=== PATIENT | male | born 1985 | race Caucasian/White ===

== ENCOUNTER 2023-09-13 12:09 | Emergency (ER) | payer OTHER, SELFPAY ==
[2023-09-13 12:28] VITALS: BP 95/65
--- NOTE | 2023-09-13 12:36 | ED.GENMED ---
History of Present Illness
<Clifton Waltonasim, DO - Last Filed: 09/14/23 06:18>
General
Chief Complaint: Crisis Evaluation
Time Seen by Provider: 09/13/23 12:35
History of Present Illness
History of Present Illness:
HPI: Patient came in by ambulance. He was found wandering on the streets of [place]. He was agitated. He has a history of meth use. Apparently EMS tried to call the father but the father did not get involved did not want to take him to the
hospital. The patient was very agitated prior to arrival was given 5 mg of IM Versed twice. 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
EXAM:
GENERAL: Akathisia noted
HEENT: Moist oral mucosa
CARDIOVASCULAR: No murmurs, normal heart rate, regular rhythm, No chest wall tenderness
PULMONARY: No respiratory distress, breath sounds are clear and equal
ABDOMEN: Soft with no peritoneal signs, no tenderness
NEUROLOGIC: Excellent strength all extremities, no coordination deficits
PSYCHIATRIC: Although he appears to have the effects of meth on board, he can fairly easily be redirected and answers questions appropriately
EXTREMITIES: Nontender, no edema, moves all extremities equally
SKIN: No rash, no lesions
TIME OF INITIAL ENCOUNTER: 12:45 PM
NUMBER AND COMPLEXITY OF PROBLEMS ADDRESSED AT THE ENCOUNTER
� Chronic conditions affecting care: History of IVDA, hep C
� Acute Exacerbation and/or Progression of Chronic Illness: This is an acute but recurring problem
� Differential Diagnosis includes: Meth abuse, substance use disorder, primary psychiatric illness, hypoglycemia
AMOUNT AND/OR COMPLEXITY OF DATA TO BE REVIEWED AND ANALYZED
� I performed an independent evaluation of and my interpretation is:
EKG:
CT:
X-rays:
Laboratory Studies: White count is 19,000 however the patient is afebrile and lactic acid is normal. Transaminases are elevated however the patient does have a history of hep C. Initial blood sugar in the 61. Sodium today is
139.
Other:
� Review of other/old records: I reviewed records, the patient was admitted with hyponatremia thought related to meth use in 2021
� Clinical information was obtained by an independent historian: EMS
� Prescriptions/Medications Considered but not given:
� Further testing considered but not performed:
RISK OF COMPLICATIONS AND/OR MORBIDITY OR MORTALITY OF PATIENT MANAGEMENT
� Social determinants of health affecting care: I believe patient is homeless
� Discussion with other providers: I spoke to crisis and [facility]
� Escalation of care including admission/observation vs risk of discharge considered: Patient came in as he was wandering and [place]. Suspect component of substance use disorder. He admits to meth use. Given his concern
for psychosis, crisis also evaluated the patient but recommends [facility] to assist with placement. [facility] is attempting to place patient at [facility]. Blood sugar has improved. Although leukocytosis is noted, his lactic acid is normal, this
is likely more of a stress response as opposed to true infection. He is afebrile. I feel that he is medically clear for placement.
Past History
<Clifton Noonan, DO - Last Filed: 09/14/23 06:18>
Past History
ED Past Medical History: Other (Hepatitis C)
ED Past Surgical History: None
Social History
Tobacco: Smoker
Alcohol: None
Drug: IVDA and Other (Methamphetamine)
Personal: Single
Living: homeless
Employment: Not employed
Phy Exam
<Clifton Noonan, DO - Last Filed: 09/14/23 06:18>
Physical Exam
Physical Exam:
See HPI
Course
<Clifton Noonan, DO - Last Filed: 09/14/23 06:18>
Orders/Labs/Results
Orders:
Orders
09/13/23 12:40
Crisis Consult Urgent
Reason for Consult: psychosis
09/13/23 12:58
Complete Blood Count/With Diff Urgent
Comprehensive Metabolic Panel Urgent
09/13/23 14:02
0.9% Sodium Chloride 1000 ml [Nss] 1,000 ml IV BOLUS
09/13/23 14:36
Lactic Acid Q4H
Comment: CANCEL 2nd LACTIC ACID IF 1st LACTIC ACID IS LESS THAN 2
Blood Culture Q30M
LARA Source: Blood/Venous
Specimen Description:
Blood Culture Q30M
LARA Source: Blood/Venous
Specimen Description:
09/13/23 16:12
Drug Screen, Urine [Urine Drug Abuse Screen] Urgent
Date Specimen was Collected: 09/13/23
Time Specimen was Collected: 16:08
Fentanyl, Urine Urgent
Abnormal Lab Results
09/13/23 09/13/23 09/13/23
12:58 15:08 16:12
WBC 19.0 H 10^3/uL
(4.8-10.8)
RBC 4.15 L 10^6/uL
(4.70-6.10)
Hgb 12.5 L g/dL
(13.0-18.0)
Hct 35.0 L %
(39.0-52.0)
Abs Immat Gran (auto) 0.1 H 10^3/uL
(0-0.05)
Absolute Neuts (auto) 16.9 H 10^3/uL
(1.4-6.5)
Absolute Monos (auto) 0.8 H 10^3/uL
(0.1-0.6)
Neutrophils % 88.9 H %
(42.2-75.2)
Lymphocytes % 6.0 L %
(20.5-51.1)
Carbon Dioxide 21 L mmol/L
(22-30)
Glucose 61 L mg/dl
(70-99)
AST 424 H U/L
(17-59)
ALT 133 H U/L
(0-50)
Total Protein 8.3 H g/dl
(6.3-8.2)
Ur Amphetamines Screen Positive H
(Negative)
U Methamphetamines Scrn Positive H
(Negative)
POC Glucose 105 H mg/dl
(70-99)
09/13/23 12:58
09/13/23 12:58
Vital Signs
Initial and Last Documented VS:
Initial Vital Signs
Temp Pulse Resp BP Pulse Ox
97.5 F 90 20 95/65 100
09/13/23 12:28 09/13/23 12:28 09/13/23 12:28 09/13/23 12:28 09/13/23 12:28
Last Documented Vital Signs
Temp Pulse Resp BP Pulse Ox
98.5 F 117 26 121/84 99
09/13/23 14:24 09/13/23 16:22 09/13/23 14:04 09/13/23 16:22 09/13/23 16:22
Moiséslt;Tom Bird, DO - Last Filed: 09/13/23 17:13>
Orders/Labs/Results
Orders:
Orders
09/13/23 12:40
Crisis Consult Urgent
Reason for Consult: psychosis
09/13/23 12:58
Complete Blood Count/With Diff Urgent
Comprehensive Metabolic Panel Urgent
09/13/23 14:02
0.9% Sodium Chloride 1000 ml [Nss] 1,000 ml IV BOLUS
09/13/23 14:36
Lactic Acid Q4H
Comment: CANCEL 2nd LACTIC ACID IF 1st LACTIC ACID IS LESS THAN 2
Blood Culture Q30M
LARA Source: Blood/Venous
Specimen Description:
Blood Culture Q30M
LARA Source: Blood/Venous
Specimen Description:
09/13/23 16:12
Drug Screen, Urine [Urine Drug Abuse Screen] Urgent
Date Specimen was Collected: 09/13/23
Time Specimen was Collected: 16:08
Fentanyl, Urine Urgent
Abnormal Lab Results
09/13/23 09/13/23 09/13/23
12:58 15:08 16:12
WBC 19.0 H 10^3/uL
(4.8-10.8)
RBC 4.15 L 10^6/uL
(4.70-6.10)
Hgb 12.5 L g/dL
(13.0-18.0)
Hct 35.0 L %
(39.0-52.0)
Abs Immat Gran (auto) 0.1 H 10^3/uL
(0-0.05)
Absolute Neuts (auto) 16.9 H 10^3/uL
(1.4-6.5)
Absolute Monos (auto) 0.8 H 10^3/uL
(0.1-0.6)
Neutrophils % 88.9 H %
(42.2-75.2)
Lymphocytes % 6.0 L %
(20.5-51.1)
Carbon Dioxide 21 L mmol/L
(22-30)
Glucose 61 L mg/dl
(70-99)
AST 424 H U/L
(17-59)
ALT 133 H U/L
(0-50)
Total Protein 8.3 H g/dl
(6.3-8.2)
Ur Amphetamines Screen Positive H
(Negative)
U Methamphetamines Scrn Positive H
(Negative)
POC Glucose 105 H mg/dl
(70-99)
09/13/23 12:58
09/13/23 12:58
Vital Signs
Initial and Last Documented VS:
Initial Vital Signs
Temp Pulse Resp BP Pulse Ox
97.5 F 90 20 95/65 100
09/13/23 12:28 09/13/23 12:28 09/13/23 12:28 09/13/23 12:28 09/13/23 12:28
Last Documented Vital Signs
Temp Pulse Resp BP Pulse Ox
98.5 F 117 26 121/84 99
09/13/23 14:24 09/13/23 16:22 09/13/23 14:04 09/13/23 16:22 09/13/23 16:22
<Clifton Noonan, DO - Last Filed: 09/14/23 06:18>
*Critical Care Note
Total Time (30-74mins, 75-104mins- exclusive of procedures): Not Applicable
<Tom Bird DO - Last Filed: 09/13/23 17:13>
Update Note
Update Note:
Patient accepted at [facility]. Stable for discharge to outpatient rehabilitation
ED Attending Note
<Clifton Noonan DO - Last Filed: 09/14/23 06:18>
-
Portions of this chart may have been created with voice recognition software.� Occasional wrong word or��sound alike� substitutions may have occurred due to the inherent limitations of voice recognition software.
Discharge Plan
Departure
Patient Disposition: Acute Rehab Facility
Date of Disposition: 09/13/23
Time of Disposition: 15:42
Discharge Problem:
Methamphetamine-induced psychotic disorder
Instructions: Drug and Alcohol Abuse Information
Prescriptions:
No Action
Unobtainable
0
Referrals:
Juan Galindo MD [Family Provider] -
Activity Restrictions/Additional Instructions:
Please go directly to [facility]. Return immediately for any worsening symptoms or any other concerns
Interventions
Interventions:
*Risk Screen - Suicide Last Done: 09/13/23 12:44
*General Assessment Last Done: 09/13/23 12:44
*Neglect/Abuse Screening Last Done: 09/13/23 12:44
ED- Fall Risk Assessment Last Done: 09/13/23 17:30
*ED COVID-19 Vaccine History Last Done: 09/13/23 17:30
*Nursing Disposition Last Done: 09/13/23 17:30
ED-Psychological Assessment Last Done: 09/13/23 12:30
Discharge Date and Time
Discharge Date/Time: 09/13/23 17:32
Print Language: FRISIAN
[2023-09-13 13:12] LABS: % Basophils 0.2 % (0-2); % Immature Granulocytes 0.5 % (0-0.5); % Monocytes 4.4 % (1.7-9.3); % Neutrophils 88.9 % (42.2-75.2); Absolute Immature Granulocytes 0.1 10^3/uL (0-0.05); Absolute Lymphocytes 1.2 10^3/uL (1.2-3.4); Absolute Monocytes 0.8 10^3/uL (0.1-0.6); Absolute Neutrophils 16.9 10^3/uL (1.4-6.5); Hemoglobin 12.5 g/dL (13.0-18.0); Mean Corp Hgb Conc. 35.7 g/dL (33.0-37.0); Mean Corpuscular Hgb 30.1 pg (27.0-31.0); Mean Corpuscular Volume 84.3 fL (80.0-94.0); Mean Platelet Volume 10.3 fL (7.4-10.4); Nucleated Red Blood Cells % 0 % (-); Platelet Count 348 10^3/uL (130-400); Red Blood Cell Count 4.15 10^6/uL (4.70-6.10); Red Cell Dist. Width 12.9 % (11.5-14.5)
[2023-09-13 13:27] LABS: ALT (SGPT) 133 U/L (0-50); AST (SGOT) 424 U/L (17-59); Albumin 4.8 g/dl (3.5-5.0); Alkaline Phosphatase 88 U/L (38-126); Blood Urea Nitrogen 11 mg/dl (9-20); Carbon Dioxide 21 mmol/L (22-30); Chloride 101 mmol/L (98-107); Glucose 61 mg/dl (70-99); Potassium 3.8 mmol/L (3.5-5.1); Sodium 139 mmol/L (135-145); Total Protein 8.3 g/dl (6.3-8.2); eGFR > 60.00
[2023-09-13 14:04] VITALS: BP 133/86
[2023-09-13] MEDS: NSS 1000 IV (14:20)
[2023-09-13 14:33] VITALS: BMI 29.3
[2023-09-13 14:59] LABS: Lactic Acid 1.3 mmol/L (0.7-2.0)
[2023-09-13 15:09] LABS: Glucose - Point of Care 105 mg/dl (70-99)
[2023-09-13 16:22] VITALS: BP 121/84
[2023-09-13 16:54] LABS: Amphetamines Positive (Negative); Barbiturates Negative (Negative); Benzodiazepines Negative (Negative); Buprenorphine Negative (Negative); Cocaine Negative (Negative); Marijuana Negative (Negative); Methadone Negative (Negative); Methamphetamines Positive (Negative); Opiates Negative (Negative); Phencyclidine Negative (Negative); Tricyclic Antidepressants Negative (Negative)
[2023-09-13 17:05] LABS: Fentanyl, Urine Negative (Negative)
== END 2023-09-13 17:32 ==
LOC: EMR 12:09
PROVIDERS: EMERGENCY PHYSICIAN Emergency Medicine; FAMILY PHYSICIAN Internal Medicine
DX: F15.959 Other stimulant use, unspecified with stimulant-induced psychotic disorder, unspecified (principal); F17.200 Nicotine dependence, unspecified, uncomplicated; Z59.00 Homelessness unspecified
CPT/HCPCS: 99283; 96360; 96361; 80053; 80306; 80307; 82962; 83605; 85025; 87040

== ENCOUNTER 2023-09-15 03:53 | Emergency (ER) | payer OTHER, SELFPAY ==
[2023-09-15] VITALS (9 sets, daily range): BP systolic 121–149; BP diastolic 91–119
--- NOTE | 2023-09-15 04:03 | ED.GENMED ---
History of Present Illness
General
Chief Complaint: Overdose Unintentional
Source: patient and ambulance crew
Time Seen by Provider: 09/15/23 04:01
History of Present Illness
History of Present Illness:
38-year-old male brought to the emergency room by medics because he was acting erratically at a wildlife. Patient observed to be very anxious, hyperactive, jerking motions of his extremities. Patient endorses a history of methamphetamine use.
Patient is wearing hospital scrubs which he states he received while recently hospitalized at [facility]. He states he was there after having rhabdomyolysis from methamphetamine use. Patient states last time he used was 2 days ago. He
insufflated his meth
Past History
Past History
ED Past Medical History: Other (Hepatitis C)
ED Past Surgical History: None
Social History
Tobacco: Smoker
Alcohol: None
Drug: IVDA and Other (Methamphetamine)
Personal: Single
Living: homeless
Employment: Not employed
Phy Exam
Physical Exam
Physical Exam:
General: Awake, Alert, hyperactive,
Vitals: Tachycardic
Head: Atraumatic
Eyes: Pupils equal, EOMI
Throat: Airway intact, no exudates, dry mucosa
Neck: Trachea midline
Lungs: Clear and equal b/l
Heart: Regular rate, no murmurs
Abd: Soft, Nontender, No pulsatile mass
Neuro: No focal deficits
Skin: Warm, dry, no rash
Extremities: pulses equal b/l, no edema
Course
Orders/Labs/Results
Orders:
Orders
09/15/23 04:01
0.9% Sodium Chloride 1000 ml [Nss] 1,000 ml IV BOLUS
Lorazepam [Ativan] 1 mg IV NOW STA
09/15/23 04:56
CPK [Creatine Phosphokinase] Urgent
Complete Blood Count/With Diff Urgent
Comprehensive Metabolic Panel Urgent
09/15/23 05:16
Lorazepam [Ativan] 1 mg IV NOW STA
Abnormal Lab Results
09/15/23
04:56
WBC 14.3 H 10^3/uL
(4.8-10.8)
RBC 4.02 L 10^6/uL
(4.70-6.10)
Hgb 12.2 L g/dL
(13.0-18.0)
Hct 33.6 L %
(39.0-52.0)
Abs Immat Gran (auto) 0.1 H 10^3/uL
(0-0.05)
Absolute Neuts (auto) 11.2 H 10^3/uL
(1.4-6.5)
Absolute Monos (auto) 1.1 H 10^3/uL
(0.1-0.6)
Neutrophils % 78.4 H %
(42.2-75.2)
Lymphocytes % 13.4 L %
(20.5-51.1)
Potassium 3.3 L mmol/L
(3.5-5.1)
BUN 5 L mg/dl
(9-20)
AST 396 H U/L
(17-59)
ALT 131 H U/L
(0-50)
Creatine Kinase 6733 H U/L
(55-170)
09/15/23 04:56
09/15/23 04:56
Vital Signs
Initial and Last Documented VS:
Initial Vital Signs
Pulse Ox
100
09/15/23 03:59
Last Documented Vital Signs
Temp Pulse Resp BP Pulse Ox
97.6 F 99 18 139/107 97
09/15/23 04:12 09/15/23 15:00 09/15/23 15:00 09/15/23 13:00 09/15/23 05:45
MDM/Problems Addressed
Differential Diagnosis Includes:
Methamphetamine intoxication, electrolyte abnormality, cocaine or other stimulant intoxication
MDM/Problems Addressed:
Patient presents with with signs and symptoms quite consistent with the stimulant intoxication. He has involuntary movements, agitation. He was treated with IV benzos with some improvement. Labs show mild elevation of his CPK. He was recently
hospitalized at [facility] for this and just discharged. Patient will be held till the morning for evaluation by pain cares. Signed out to Dr. Banerjee
*Pulse Oximetry
Patient hypoxic: no
*Social Media Intern Interpretation
Rate: tachycardiac
Interpretation: abnormal
Rhythm: sinus tachycardia
*Critical Care Note
Total Time (30-74mins, 75-104mins- exclusive of procedures): Not Applicable
Patient Management
Social determinants of health affecting care: Living situation and Substance abuse
ED Attending Note
-
Portions of this chart may have been created with voice recognition software.� Occasional wrong word or��sound alike� substitutions may have occurred due to the inherent limitations of voice recognition software.
Discharge Plan
Departure
Patient Disposition: Acute Rehab Facility
Date of Disposition: 09/15/23
Time of Disposition: 13:12
Condition: Good
Discharge Problem:
Methamphetamine intoxication
Instructions: Methamphetamine
Prescriptions:
No Action
Unobtainable
0
Referrals:
NONE,* [Family Provider] -
Interventions
Interventions:
*Risk Screen - Suicide Last Done: 09/15/23 04:12
*General Assessment Last Done: 09/15/23 04:12
*Neglect/Abuse Screening Last Done: 09/15/23 04:12
ED- Fall Risk Assessment Last Done: 09/15/23 04:15
*ED COVID-19 Vaccine History Last Done: 09/15/23 04:12
*Nursing Disposition Last Done: 09/15/23 15:54
ED- Cardiac Assessment Last Done: 09/15/23 04:15
ED- Neurological Assessment Last Done: 09/15/23 04:15
ED-Psychological Assessment Last Done: 09/15/23 04:15
ED- Pulmonary Assessment Last Done: 09/15/23 04:15
Discharge Date and Time
Discharge Date/Time: 09/15/23 15:55
Print Language: SAMOAN
[2023-09-15] MEDS: ATIVAN 1 MG IV ×2 (04:43→05:21)
[2023-09-15] MEDS: NSS 1000 IV (04:46)
[2023-09-15 05:11] LABS: % Basophils 0.1 % (0-2); % Eosinophils 0.1 % (0-6); % Immature Granulocytes 0.5 % (0-0.5); % Lymphocytes 13.4 % (20.5-51.1); % Monocytes 7.5 % (1.7-9.3); % Neutrophils 78.4 % (42.2-75.2); Absolute Immature Granulocytes 0.1 10^3/uL (0-0.05); Absolute Lymphocytes 1.9 10^3/uL (1.2-3.4); Absolute Monocytes 1.1 10^3/uL (0.1-0.6); Absolute Neutrophils 11.2 10^3/uL (1.4-6.5); Hematocrit 33.6 % (39.0-52.0); Hemoglobin 12.2 g/dL (13.0-18.0); Mean Corp Hgb Conc. 36.3 g/dL (33.0-37.0); Mean Corpuscular Hgb 30.3 pg (27.0-31.0); Mean Corpuscular Volume 83.6 fL (80.0-94.0); Mean Platelet Volume 9.8 fL (7.4-10.4); Nucleated Red Blood Cells % 0 % (-); Platelet Count 332 10^3/uL (130-400); Red Blood Cell Count 4.02 10^6/uL (4.70-6.10); Red Cell Dist. Width 12.8 % (11.5-14.5); White Blood Cell Count 14.3 10^3/uL (4.8-10.8)
[2023-09-15 05:33] LABS: ALT (SGPT) 131 U/L (0-50); AST (SGOT) 396 U/L (17-59); Albumin 4.2 g/dl (3.5-5.0); Alkaline Phosphatase 76 U/L (38-126); Blood Urea Nitrogen 5 mg/dl (9-20); Calcium 9.7 mg/dl (8.4-10.2); Carbon Dioxide 23 mmol/L (22-30); Chloride 99 mmol/L (98-107); Estimated Creatinine Clearance 102 ml/min; Glucose 94 mg/dl (70-99); Potassium 3.3 mmol/L (3.5-5.1); Sodium 136 mmol/L (135-145); Total Bilirubin 0.9 mg/dl (0.2-1.3); Total Protein 7.2 g/dl (6.3-8.2); eGFR > 60.00
[2023-09-15 05:42] LABS: Creatine Phosphokinase 6733 U/L (55-170)
--- NOTE | 2023-09-15 12:42 | CM ---
CM reviewed medical records. CM met with patient in room. Patient is now agreeable to placement and is asking to be placed at '[facility]'. CM noted that patient presented on 09/12 with similar complaints and left prior to going to [facility]. He now agreeable to have [facility] assist with placement.
Patient stated he's 'Tired of living like this.' CM updated ED physician with plan for [facility].
== END 2023-09-15 15:55 ==
LOC: EMR 03:53
PROVIDERS: EMERGENCY PHYSICIAN Emergency Medicine
DX: F15.129 Other stimulant abuse with intoxication, unspecified (principal); F17.200 Nicotine dependence, unspecified, uncomplicated
CPT/HCPCS: 99285; 96374; 96376; 96361; 80053; 82550; 85025

== ENCOUNTER 2025-01-24 19:04 | Emergency (ER) | payer OTHER, SELFPAY ==
[2025-01-24 19:08] VITALS: BP 102/85
[2025-01-24 19:12] VITALS: BP 102/85
[2025-01-24 19:17] VITALS: BMI 32.9
--- NOTE | 2025-01-24 19:47 | ED.GENMED ---
History of Present Illness
General
Chief Complaint: Abnormal Lab Value
Source: patient
Exam Limitations: none
Time Seen by Provider: 01/24/25 19:36
Nursing documentation reviewed up to this point in time: agreed with
History of Present Illness
History of Present Illness:
39-year-old patient with history of bipolar disorder, PTSD, hep C, last meth use 4 days ago, states he's been off IV drugs for over 4 years, presents from [facility] for 'I'm homeless and went there to 'get my meds straightened out' and his
admission lab work from 2 days ago came back with high CPK. He states he's had rhabdomyolysis in the past from 'just running myself ragged on the streets.' Patient denies chest pain, trouble breathing, headache, abdominal pain, N/V/D/C.
Past History
Past History
ED Past Medical History: Psychiatric (Bipolar, depression, PTSD. Hep C. Meth abuse currently, history of IV drug abuse, states he has not done that in over 4 years.) and Other (Hepatitis C, rhabdomyolysis)
Social History
Tobacco: Smoker
Alcohol: None
Drug: IVDA and Other (Methamphetamine)
Personal: Single
Living: homeless
Employment: Not employed
Review of Systems
Review of Systems
Allergies reviewed?: Yes
All Other Systems: ROS reviewed and negative except as documented in HPI and ROS
Phy Exam
Physical Exam
Physical Exam:
GENERAL: No acute distress. A&Ox3.
CONSTITUTIONAL: Afebrile.
EYES: clear, conjunctivae normal
ENMT: moist mucus membranes, Pharynx nl, poor dentition multiple caries
RESPIRATORY: Regular respirations, nonlabored, lungs clear.
CARDIOVASCULAR: Regular rate and rhythm, no murmurs, no rubs.
GI: Soft, nontender, normal BS
MUSCULOSKELETAL: Moves with ease. Well perfused.
SKIN: Warm, dry, pink
PSYCH: Normal mood and affect. Well kept, interactive and appropriate
NEUROLOGIC: Awake, alert and oriented. No focal neurological deficits
Course
Orders/Labs/Results
Orders:
Orders
01/24/25 19:47
0.9% Sodium Chloride 1000 ml [Nss] 1,000 ml IV BOLUS
01/24/25 19:50
Complete Blood Count/With Diff Urgent
Comprehensive Metabolic Panel Urgent
Creatine Phosphokinase Urgent
Erythrocyte Sed Rate Urgent
01/24/25 20:19
Urinalysis Reflex To Culture Urgent
Date Specimen was Collected: 01/24/25
Time Specimen was Collected: 20:17
Abnormal Lab Results
01/24/25
19:50
RBC 4.69 L 10^6/uL
(4.70-6.10)
Absolute Monos (auto) 1.0 H 10^3/uL
(0.1-0.6)
Monocytes % 11.5 H %
(1.7-9.3)
ESR 45 H mm/hour
(0-20)
Sodium 131 L mmol/L
(135-145)
Chloride 95 L mmol/L
(98-107)
AST 171 H U/L
(17-59)
ALT 78 H U/L
(0-50)
Creatine Kinase 766 H U/L
(55-170)
01/24/25 19:50
01/24/25 19:50
Vital Signs
Initial and Last Documented VS:
Initial Vital Signs
Temp Pulse Resp BP Pulse Ox
98.1 F 103 14 102/85 97
01/24/25 19:08 01/24/25 19:08 01/24/25 19:08 01/24/25 19:08 01/24/25 19:08
Last Documented Vital Signs
Temp Pulse Resp BP Pulse Ox
98.1 F 99 22 105/68 96
01/24/25 19:08 01/24/25 21:30 01/24/25 21:30 01/24/25 21:00 01/24/25 19:49
Bulk Materials Handling Plant Operator consulted with Physician
Bulk Materials Handling Plant Operator consulted with physician?: Yes
Name of Physician Consulted: Ottoniel
MDM/Problems Addressed
Differential Diagnosis Includes:
rhabdomyolysis, renal insufficiency
MDM/Problems Addressed:
39-year-old patient with history of bipolar disorder, PTSD, hep C, last meth use 4 days ago, states he's been off IV drugs for over 4 years, presents from [facility] for 'I'm homeless and went there to 'get my meds straightened out' and his
admission lab work from 2 days ago came back with high CPK. He states he's had rhabdomyolysis in the past from 'just running myself ragged on the streets.' Patient denies chest pain, trouble breathing, headache, abdominal pain, N/V/D/C.
Patient out of bed and ambulating well to the bathroom and back. NAD.
Lab report from [place] yesterday confirms CK of 2535.
8:30 PM:
CBC normal
CMP with normal kidney function, mildly elevated AST and ALT, CK is much lower than yesterday at 766
Final diagnosis: Rhabdomyolysis, improving
IV fluids infusion, patient drinking a lot of fluids (1500 ml so far)
Case discussed with Dr. Alcazar, patient is stable for discharge back to [facility]
*Pulse Oximetry
SaO2: 96
Oxygen Mode of Delivery: Room air
Patient hypoxic: no
*Critical Care Note
Total Time (30-74mins, 75-104mins- exclusive of procedures): Not Applicable
ED Attending Note
-
Portions of this chart may have been created with voice recognition software.� Occasional wrong word or��sound alike� substitutions may have occurred due to the inherent limitations of voice recognition software.
Discharge Plan
Departure
Patient Disposition: Psych Facility
Date of Disposition: 01/24/25
Time of Disposition: 21:32
Condition: Good
Discharge Problem:
Rhabdomyolysis
Instructions: Rhabdomyolysis
Prescriptions:
No Action
Unobtainable
0
Referrals:
[facility] [Outside]
Harjit Harley MD [Primary Care Provider, [facility]]
Activity Restrictions/Additional Instructions:
As we discussed, your CK is much lower today at 766. Continue to drink plenty of fluids and it should come back to normal within the next couple of days
Your other lab work is normal
You may go back to [facility]
Interventions
Interventions:
*Risk Screen - Suicide Last Done: 01/24/25 19:08
*General Assessment Last Done: 01/24/25 19:08
*Neglect/Abuse Screening Last Done: 01/24/25 19:08
*ED- Fall Risk Assessment Last Done: 01/24/25 19:08
*ED COVID-19 Vaccine History Last Done: 01/24/25 19:08
Discharge Date and Time
Print Language: SOUTH SUDANESE
[2025-01-24 19:57] LABS: Hematocrit 40.3 % (39.0-52.0); Hemoglobin 13.9 g/dL (13.0-18.0); Mean Corp Hgb Conc. 34.5 g/dL (33.0-37.0); Mean Corpuscular Volume 85.9 fL (80.0-94.0); Nucleated Red Blood Cells % 0 % (-); Platelet Count 337 10^3/uL (130-400); Red Cell Dist. Width 12.8 % (11.5-14.5)
[2025-01-24 20:00] VITALS: BP 115/80
[2025-01-24] MEDS: NSS 1000 IV (20:16)
[2025-01-24 20:20] LABS: ALT (SGPT) 78 U/L (0-50); AST (SGOT) 171 U/L (17-59); Albumin 4.3 g/dl (3.5-5.0); Alkaline Phosphatase 52 U/L (38-126); Blood Urea Nitrogen 20 mg/dl (9-20); Calcium 9.2 mg/dl (8.4-10.2); Carbon Dioxide 29 mmol/L (22-30); Chloride 95 mmol/L (98-107); Estimated Creatinine Clearance 97 ml/min; Glucose 97 mg/dl (70-99); Potassium 4.2 mmol/L (3.5-5.1); Sodium 131 mmol/L (135-145); Total Protein 7.9 g/dl (6.3-8.2); eGFR > 60.00
[2025-01-24 20:37] LABS: Urine Character Clear (Clear)
[2025-01-24 21:00] VITALS: BP 105/68
== END 2025-01-24 23:31 ==
LOC: EMR 19:04
PROVIDERS: Registered Nurse; EMERGENCY PHYSICIAN Emergency Medicine; PRIMARYCARE PHYSICIAN Family Medicine
DX: M62.82 Rhabdomyolysis (principal); F31.9 Bipolar disorder, unspecified; F43.10 Post-traumatic stress disorder, unspecified; B19.20 Unspecified viral hepatitis C without hepatic coma; F17.200 Nicotine dependence, unspecified, uncomplicated; Z59.00 Homelessness unspecified
CPT/HCPCS: 99284; 96360; 80053; 81003; 82550; 85025; 85652